=== PATIENT | male | born 1945 | race Caucasian/White ===

== ENCOUNTER → 2016-10-20 | Outpatient (CLI) | payer OTHER ==
[~2016-10-20] MED LIST: ASPI81TA28 PO; ATOR-54 PO; CEPH500C2 PO; HYDR-5688 PO; HYDR12.56 PO; MULT-506 PO; NTRGSL/4 UT; OMEP40CA41 PO; RAMI10CA PO; RAMI5CAP PO; WARF5TAB7 PO; WARF7.5T4 PO
[2016-10-20 10:25] LABS: CHOLESTEROL/HDL RATIO 3.3
== END | disposition home or self-care (01) ==
LOC: C.LAB1850 08:34
PROVIDERS: ATTEND Internal Medicine Cardiovascular Disease
DX: E78.5 Hyperlipidemia, unspecified (principal)

== ENCOUNTER → 2017-03-20 | Day surgery (SDC) | payer OTHER ==
[2017-03-17 09:39] LABS: BASO % 0.5 %; BASO ABS # 0.03 K/uL (0-0.2); COMPLETE YES; EOS % 2.8 %; HEMATOCRIT 41.3 % (42-52); IG% 0.2 %; LYMPH % 23.2 %; LYMPH ABS # 1.41 K/uL (1.2-3.4); MEAN CELL VOLUME 93.2 fL (80-100); MEAN CORPUSCULAR HGB CONC 35.4 g/dl (32-36); MEAN PLATELET VOLUME 9.8 fL (7.4-10.4); MONO % 6.4 %; NEUT % 66.9 %; PLATELET COUNT 211 K/uL (130-400); RED BLOOD COUNT 4.43 M/uL (4.7-6.1); WHITE BLOOD COUNT 6.08 K/uL (4.8-10.8)
[2017-03-17 10:02] LABS: BLOOD UREA NITROGEN 18 mg/dl (7-18); BUN/CREATININE RATIO 12.6 (10-20); CALCIUM 8.8 mg/dl (8.5-10.1); CARBON DIOXIDE 28 mmol/L (21-32); CHLORIDE 106 mmol/L (98-107); GLUCOSE 85 mg/dl (70-99); POTASSIUM 4.4 mmol/L (3.5-5.1); SODIUM 140 mmol/L (136-145)
[2017-03-18 08:43] VITALS: Ht 188 cm; Wt 77.3 kg
[~2017-03-20] VITALS: Ht 188 cm; Wt 77.3 kg
[~2017-03-20] MED LIST changes: +ATROPINE SULFATE 0.1 MG/ML 5ML SYR IV PRN; +BENZOIN SPRAY 118 ML BTL TOP ONE; +BUPIVACAINE 0.5 % 5 MG/1 ML PF 10ML VIAL ONE; +CEFOXITIN IV 2,000 MG in DEXTROSE 5% 50ML 50 ML IV SCH; +CEFOXITIN SOD 2000MG IV SCH; +DEXAMETHASONE SOD INJ 4 MG/ML VIAL ONE; +FENTANYL CITRATE INJ 50 MCG/1 ML 2 ML VIAL IV PRN; +FENTANYL CITRATE INJ 50 MCG/1 ML 2 ML VIAL ONE; +GLYCOPYRROLATE INJ 0.2 MG/ML VIAL ONE; +HYDROCODONE/ACETAMOPHEN 5/325MG TAB PO PRN; +LACTATED RINGER'S 1000ML 1,000 ML IV SCH; +LIDOCAINE HCL 2% 2 ML VIAL (20MG/ML) ONE; +METHYLENE BLUE 0.5% 10 ML VIAL ONE; +MIDAZOLAM HCL 1 MG/ML 2ML VIAL ONE; +NEOSTIGMINE METHYLSULFATE 5 MG/5 ML SYR ONE; +ONDANSETRON INJ 2 MG/ML 2 ML VIAL IV PRN; +ONDANSETRON INJ 2 MG/ML 2 ML VIAL ONE; +PROPOFOL IV EMULSION 10 MG/ML 20 ML VIAL IV ONE; +ROCURONIUM BROMIDE 10 MG/ML 5 ML VIAL IV ONE; +SODIUM CHLORIDE 0.9% 1000ML 1,000 ML IV SCH; +SUCCINYLCHOLINE CHLORIDE 20 MG/ML 10 ML VIAL IV ONE
--- NOTE | 2017-03-20 11:58 | History & Physical Bridge - [place] ---
H&P Re-Evaluation Bridge Note: I have examined the patient, reviewed the History & Physical and in the interval since the performance of the History & Physical I have noted the following changes of clinical significance: No changes noted
--- NOTE | 2017-03-20 12:36 | [facility] Operative Report ---
Operative Report Operative Date Mar 20, 2017. Pre-Operative Diagnosis [id number] Post-Operative Diagnosis same as preop Procedure(s) Performed Rectal Exam Under Anesthesia, Fistulotomy Surgeon Dr. 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 Any exceptions are noted below.
--- NOTE | 2017-03-20 12:43 | Discharge Instructions-SurgCtr ---
Discharge Instructions Date of Service Mar 20, 2017. 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 will need to use a pad for 1-2 weeks * * Avoid constipation- may use Senokot S and Milk of magnesia twice daily as directed on the package * May use ibuprofen for pain as tolerated. * Expect some swelling and bruising. Call your doctor if: * Temperature above 101 degrees * Pain not relieved by pain medicine ordered * There is increased drainage or redness from any incision * You have any unanswered questions or concerns [phone]. FOLLOW UP VISIT: If not already scheduled, please call the office for a follow-up visit. for next week- check up- no sutures to remove OFFICE PHONE NUMBER: Dr. Casanova Office Anesthesia . Post Anesthesia Instructions: If you have had General Anesthesia or IV Sedation: * Do not drive today. * Resume driving when surgeon permits. * Do not make important decisions or sign legal documents today. * Call surgeon for: 1. Temperature elevations greater than 101 degrees F. 2. Uncontrollable pain. 3. Excessive bleeding. 4. Persistent nausea and vomiting. 5. Medication intolerance (nausea, vomiting or rash). * For nausea and vomiting use only clear liquids such as: tea, soda, bouillon until nausea subsides, then gradually increase diet as tolerated. * If you have any concerns or questions, call your surgeon's office. If physician is unavailable and it is an emergency, call 911 or go to the nearest emergency room. . Diet Recommendations Home Diet: resume previous diet Procedures Procedures Performed: Rectal Exam Under Anesthesia, Fistulotomy Pending Studies Studies pending at discharge: no Medical Emergencies . Who to Call and When: Medical Emergencies: If at any time you feel your situation is an emergency, please call 911 immediately. . Non-Emergent Contact Non-Emergency issues call your: Primary Care Provider, Surgeon . . "Provider Documentation" section prepared by Max Casanova. .
--- NOTE | 2017-03-20 13:25 | OPERATIVE REPORT ---
DATE OF OPERATION: 03/20/2017 NAME OF OPERATION: Exam under anesthesia with fistulotomy. POSTOPERATIVE DIAGNOSIS: Fistula in ano. POSTOPERATIVE DIAGNOSIS: Same. STAFF SURGEON: Dr. Casanova. SUPERVISOR LEAD BURNING: Kailyn Arguello PA-C. ANESTHESIA: General. POSITION: Prone. PROCEDURE: The patient was brought in the operating room and placed on the operating table in the prone position after appropriate intubation. His buttocks were taped apart. The table was placed in a slight jackknife position. On inspection, the patient had what appeared to be small granulomas to the right of the anal area at approximately 4 o'clock. These were probed and found to communicate with a tunnel to the area just above the dentate line deep to the internal sphincter muscle. There was a cord-like palpable structure in the subcutaneous tissue which I suspected was the fistula. This area was opened. There was a large area of granuloma with the fistula tract as described just above the dentate line. It was not through the external sphincter muscles. This was opened and then cauterized and then a dressing applied. The area was anesthetized using 0.5% plain Marcaine and again the finding was a fistula in ano. I attest to the content of the Intraoperative Record and any orders documented therein. Any exception s are noted below.
[2017-03-20 13:39] VITALS: TEMP 36.4
[2017-03-20 13:52] VITALS: PULSE 76
[2017-03-20] MEDS: LABETALOL HCL IV 5 MG/ML 20ML IV PRN ×2 (14:06→14:21)
--- NOTE | 2017-03-20 14:29 | Anesthesia Progress Nt - [facility] ---
Anesthesia Post Op Note Date & Time Mar 20, 2017 at 14:29 Vital Signs Vital Signs Past 12 Hours Date Time Temp Pulse Resp B/P (MAP) Pulse Ox O2 Delivery O2 Flow Rate FiO2 03/20/17 13:52 76 16 171/105 (127) 97 Room Air 03/20/17 13:39 36.4 74 16 169/93 (118) 98 Room Air 03/20/17 13:22 36.6 164/98 (119) 03/20/17 13:20 173/107 (125) 03/20/17 13:19 68 14 96 03/20/17 13:19 68 14 03/20/17 13:15 150/98 (113) 03/20/17 13:14 80 19 03/20/17 13:14 81 19 96 03/20/17 13:10 156/95 (120) 03/20/17 13:09 74 23 03/20/17 13:09 74 23 98 03/20/17 13:06 Room Air 03/20/17 13:05 143/98 (110) 03/20/17 13:04 75 22 03/20/17 13:04 79 22 97 03/20/17 13:00 154/89 (112) 03/20/17 12:59 63 16 163/101 (120) 100 03/20/17 12:59 61 16 03/20/17 12:55 139/100 (114) 03/20/17 12:54 70 18 03/20/17 12:54 72 18 100 03/20/17 12:50 150/102 (124) 03/20/17 12:49 72 13 03/20/17 12:49 74 13 03/20/17 12:45 161/108 (121) 03/20/17 12:44 87 19 03/20/17 12:44 85 19 98 03/20/17 12:43 169/106 (137) 03/20/17 12:39 36.3 86 16 169/106 97 Diffusion Mask 5 03/20/17 10:39 37.2 89 22 166/115 (132) 97 Room Air 170/90 (116) Notes Mental Status: alert / awake / arousable, participated in evaluation Pt Amnestic to Procedure: Yes Nausea / Vomiting: adequately controlled Pain: adequately controlled Airway Patency, RR, SpO2: stable & adequate BP & HR: stable & adequate Hydration State: stable & adequate Anesthetic Complications: no major complications apparent
[2017-03-20 14:33] VITALS: BP 162/98; O2SAT 97
== END | disposition home or self-care (01) ==
LOC: X.SURG 10:20
PROVIDERS: ATTEND Surgery
DX: K60.3 Anal fistula (principal); Z79.01 Long term (current) use of anticoagulants; I48.91 Unspecified atrial fibrillation; I25.10 Atherosclerotic heart disease of native coronary artery without angina pectoris; K64.8 Other hemorrhoids; E78.5 Hyperlipidemia, unspecified; I10 Essential (primary) hypertension; R39.9 Unspecified symptoms and signs involving the genitourinary system; Z79.899 Other long term (current) drug therapy

== ENCOUNTER 2017-07-08 10:25 | Emergency (ER) | payer OTHER ==
[~2017-07-08] VITALS: Ht 188 cm; Wt 79.4 kg
[~2017-07-08 10:25] MED LIST changes: -ATROPINE SULFATE 0.1 MG/ML 5ML SYR IV PRN; -BENZOIN SPRAY 118 ML BTL TOP ONE; -BUPIVACAINE 0.5 % 5 MG/1 ML PF 10ML VIAL ONE; -CEFOXITIN IV 2,000 MG in DEXTROSE 5% 50ML 50 ML IV SCH; -CEFOXITIN SOD 2000MG IV SCH; -DEXAMETHASONE SOD INJ 4 MG/ML VIAL ONE; -FENTANYL CITRATE INJ 50 MCG/1 ML 2 ML VIAL IV PRN; -FENTANYL CITRATE INJ 50 MCG/1 ML 2 ML VIAL ONE; -GLYCOPYRROLATE INJ 0.2 MG/ML VIAL ONE; -HYDROCODONE/ACETAMOPHEN 5/325MG TAB PO PRN; -LACTATED RINGER'S 1000ML 1,000 ML IV SCH; -LIDOCAINE HCL 2% 2 ML VIAL (20MG/ML) ONE; -METHYLENE BLUE 0.5% 10 ML VIAL ONE; -MIDAZOLAM HCL 1 MG/ML 2ML VIAL ONE; -NEOSTIGMINE METHYLSULFATE 5 MG/5 ML SYR ONE; -ONDANSETRON INJ 2 MG/ML 2 ML VIAL IV PRN; -ONDANSETRON INJ 2 MG/ML 2 ML VIAL ONE; -PROPOFOL IV EMULSION 10 MG/ML 20 ML VIAL IV ONE; -ROCURONIUM BROMIDE 10 MG/ML 5 ML VIAL IV ONE; -SODIUM CHLORIDE 0.9% 1000ML 1,000 ML IV SCH; -SUCCINYLCHOLINE CHLORIDE 20 MG/ML 10 ML VIAL IV ONE
[2017-07-08 10:27] VITALS: TEMP 36.4; Ht 188 cm; Wt 79.4 kg
[2017-07-08] MEDS ORDERED: NAPR1TAB9 PO (11:13)
--- NOTE | 2017-07-08 11:19 | DIAGNOSTIC IMAGING REPORT ---
R ANKLE MIN 3 VIEWS ROUTINE CLINICAL HISTORY: swelling/pain pain. Edema. COMPARISON: None. DISCUSSION: The bones and joint spaces appear intact. There is no evidence of fracture, dislocation or bony disease. Mild generalized soft tissue edema. Small old avulsion tip medial malleolus. IMPRESSION: Soft tissue edema. No acute bony abnormality. The above report was generated using voice recognition software. It may contain grammatical, syntax or spelling errors. Electronically signed by: Lopez Villarreal M.D. 07/08/2017 11:17 AM Dictated Date/Time: 07/08/2017 11:12 AM
[2017-07-08 12:05] LABS: BASO % 0.4 %; BASO ABS # 0.03 K/uL (0-0.2); COMPLETE YES; EOS % 1.3 %; IG% 0.3 %; LYMPH % 18.4 %; LYMPH ABS # 1.47 K/uL (1.2-3.4); MEAN CELL VOLUME 94.6 fL (80-100); MEAN CORPUSCULAR HEMOGLOBIN 32.9 pg (25-34); MEAN CORPUSCULAR HGB CONC 34.8 g/dl (32-36); MEAN PLATELET VOLUME 9.4 fL (7.4-10.4); NEUT % 72.6 %; PLATELET COUNT 264 K/uL (130-400); RED BLOOD COUNT 4.44 M/uL (4.7-6.1); WHITE BLOOD COUNT 7.99 K/uL (4.8-10.8)
[2017-07-08 12:14] LABS: INR 1.8 (0.9-1.1); PARTIAL THROMBOPLASTIN RATIO 1.5; PROTHROMBIN TIME (PATIENT) 18.7 SECONDS (9.0-12.0)
[2017-07-08 12:26] LABS: BUN/CREATININE RATIO 19.2 (10-20); CREATININE 1.45 mg/dl (0.60-1.40); POTASSIUM 4.4 mmol/L (3.5-5.1)
--- NOTE | 2017-07-08 12:31 | DIAGNOSTIC IMAGING REPORT ---
RIGHT LOWER EXTREMITY VENOUS DOPPLER HISTORY: R foot/ankle/lower leg swelling COMPARISON STUDY: None. FINDINGS: There is normal compressibility, flow, and augmentation within the right lower extremity deep venous system. IMPRESSION: No DVT within the right lower extremity Electronically signed by: Rj Reed M.D. 07/08/2017 12:29 PM Dictated Date/Time: 07/08/2017 12:29 PM
[2017-07-08 13:03] VITALS: BP 118/80; PULSE 75; O2SAT 95
[2017-07-08] MEDS ORDERED: CEPH500C2 PO (13:05)
--- NOTE | 2017-07-08 13:29 | EMERGENCY ROOM VISIT NOTE ---
ED Visit Note First contact with patient: 11:16 Patient seen and examined at bedside. All results reviewed. Patient comfortable and agreeable with plan as outlined by the physician hearing aid assistant. Patient plans to call Coumadin clinic today to discuss INR adjustments made to his usual dosing. Discussed with patient symptoms to watch and return for, he verbalized understanding.
--- NOTE | 2017-07-08 21:34 | EMERGENCY ROOM VISIT NOTE ---
ED Visit Note First contact with patient: 11:16 Chief Complaint: Right foot pain and swelling. History of Present Illness: Mr. Payton is a 72-year-old white male who ambulates into the ED complaining of right foot pain and swelling. Historically patient reports she has a history of atrial fibrillation and has been on warfarin for the last 10 years. Patient noted that he started developing pain over the lateral aspect of the right foot approximately 2 weeks ago. Since that time he has noted mild swelling but over the last 24 hours after coming home from [place] the swelling has increased. This is been associated with some mild erythema over the foot and into the lower third of the anterior lower leg. He reports at rest he has just some mild pain that he cannot describe and rates this discomfort 1/10. When he ambulates the pain becomes more intense and he rates this discomfort 2/ 10. He describes the discomfort as a pressure sensation. He also notes that sprain increases with palpation of the foot. He reports he has been using Tylenol with minimal relief of discomfort. He denies any associated symptoms including knee pain, ankle pain, pre-existing injury, recent injury. 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 Patient denies fevers, chills, sweats, other skin eruptions, chest pain, shortness of breath, palpitations, decreased appetite, abdominal pain, nausea, vomiting, leg/foot weakness/numbness/tingling. Review of Systems: As noted above in history of present illness. At least body systems were reviewed and found to be negative as noted above. Past Medical History: As previously noted, hypertension and status post hernia repair, unspecified knee surgery and tonsillectomy. Current Medications: Medications Dose Route/Sig Max Daily Dose Days Date Category Dose Instructions Aleve (Naproxen) 220 Mg Tab 220 Mg PO 07/08/17 Reported [place] 5MG/325MG (Acetaminophen/Hydrocodone Bitart) Tab 1-2 Tablet PO Q 6 HRS PRN 03/20/17 Rx PRN PAIN Lipitor (Atorvastatin) 20 Mg Tab 20 Mg PO QPM 03/18/17 Reported Hctz (Hydrochlorothiazide) 12.5 Mg Cap 12.5 Mg PO QAM 03/18/17 Reported Multivitamin (Multivitamins) Tab 1 Tab PO QAM 03/18/17 Reported Nitrostat (Nitroglycerin) 0.4 Mg Tab 0.4 Mg UT PRN 03/18/17 Reported Prilosec (Omeprazole) 40 Mg Cap 40 Mg PO QAM 03/18/17 Reported Ramipril 10 Mg Cap 10 Mg PO QAM 03/18/17 Reported Ramipril 5 Mg Cap 5 Mg PO QPM 03/18/17 Reported Jantoven (Warfarin Sodium) 7.5 Mg Tab 7.5 Mg PO MWF 03/18/17 Reported Jantoven (Warfarin Sodium) 5 Mg Tab 5 Mg PO [place] 03/18/17 Reported Aspirin Ec (Aspirin) 81 Mg Tab 81 Mg PO QAM 03/18/17 Reported Allergies to Medications: Patient denies. Social History: Patient is not employed; he feels safe in his home environment; he denies tobacco use and admits to alcohol use. Physical Examination: Vital Signs: Date Time Temp Pulse Resp B/P (MAP) Pulse Ox O2 Delivery O2 Flow Rate FiO2 07/08/17 13:03 75 17 118/80 95 07/08/17 11:52 90 17 120/80 97 Room Air 07/08/17 10:27 36.4 79 18 115/77 95 Room Air GENERAL: 72-year-old male in no acute distress, nontoxic-appearing, afebrile and hemodynamically stable. NEUROLOGICAL: Awake, alert and oriented to person, place and time. Answering questions appropriately and following commands. SKIN: Warm, dry and pink. No soft tissue trauma noted. HEENT: Atraumatic and normocephalic. THORAX: Lungs sounds are clear to auscultation and equal bilaterally with symmetrical chest wall. No wheezing, rales or rhonchi. No crepitus, tenderness , subcutaneous air or deformities noted. HEART: Regular rate and rhythm. No gallops, rubs or murmurs are appreciated. ABDOMEN: Flat, soft and nontender. Positive bowel sounds in all quadrants. No guarding, rigidity or organomegaly. LOWER EXTREMITIES: Moves all extremities well on command and with purpose. All distal neurovascular statuses are intact and equal bilaterally. No calf tenderness or cords. Right Lower Leg: Shows no gross bony deformities. There is mild erythema over the distal third of the tibia/fibula anteriorly and extending laterally over the lateral ankle and lateral foot. This area is warm to the touch when compared to the left. The area does not appear grossly cellulitis. There is no lymphangitis. He does have mild tenderness over the lateral inferior malleolus area of the foot. I do not see any wounds in this area. Distal pulses, sensations and full range of motion are noted. ED Course: Patient is assessed as noted above. Patient's medication list was reviewed. Laboratory Testing: Test 07/08/17 11:50 Range/Units White Blood Count 7.99 4.8-10.8 K/uL Red Blood Count 4.44 4.7-6.1 M/uL Hemoglobin 14.6 14.0-18.0 g/dL Hematocrit 42.0 42-52 % Mean Corpuscular Volume 94.6 80-100 fL Mean Corpuscular Hemoglobin 32.9 25-34 pg Mean Corpuscular Hemoglobin Concent 34.8 32-36 g/dl Platelet Count 264 130-400 K/uL Mean Platelet Volume 9.4 7.4-10.4 fL Neutrophils (%) (Auto) 72.6 % Lymphocytes (%) (Auto) 18.4 % Monocytes (%) (Auto) 7.0 % Eosinophils (%) (Auto) 1.3 % Basophils (%) (Auto) 0.4 % Neutrophils # (Auto) 5.81 1.4-6.5 K/uL Lymphocytes # (Auto) 1.47 1.2-3.4 K/uL Monocytes # (Auto) 0.56 0.11-0.59 K/uL Eosinophils # (Auto) 0.10 0-0.5 K/uL Basophils # (Auto) 0.03 0-0.2 K/uL RDW Standard Deviation 42.9 36.4-46.3 fL RDW Coefficient of Variation 12.4 11.5-14.5 % Immature Granulocyte % (Auto) 0.3 % Immature Granulocyte # (Auto) 0.02 0.00-0.02 K/uL Prothrombin Time 18.7 9.0-12.0 SECONDS Prothromb Time International Ratio 1.8 0.9-1.1 Activated Partial Thromboplast Time 39.2 21.0-31.0 SECONDS Partial Thromboplastin Ratio 1.5 Sodium Level 135 136-145 mmol/L Potassium Level 4.4 3.5-5.1 mmol/L Chloride Level 103 98-107 mmol/L Carbon Dioxide Level 26 21-32 mmol/L Anion Gap 6.0 3-11 mmol/L Blood Urea Nitrogen 28 7-18 mg/dl Creatinine 1.45 0.60-1.40 mg/dl Est Creatinine Clear Calc Drug Dose 52.5 ml/min Estimated GFR () 55.8 Estimated GFR (Non- 48.1 BUN/Creatinine Ratio 19.2 10-20 Random Glucose 92 70-99 mg/dl Calcium Level 9.0 8.5-10.1 mg/dl Total Bilirubin 0.9 0.2-1 mg/dl Direct Bilirubin 0.2 0-0.2 mg/dl Aspartate Amino Transf (AST/SGOT) 17 15-37 U/L Alanine Aminotransferase (ALT/SGPT) 19 12-78 U/L Alkaline Phosphatase 73 45-117 U/L Total Protein 7.1 6.4-8.2 gm/dl Albumin 3.1 3.4-5.0 gm/dl Left Ankle X-Rays: Were read by myself and the radiologist showing no acute fractures or dislocations. Mild generalized soft tissue edema was noted. Radiologist did note a small old avulsion chip fracture the medial malleolus. Right Lower Extremity Venous Doppler Ultrasound: Was reviewed by myself and read by the radiologist showing no deep vein thrombus. Patient was offered pain medication and refused multiple times. Patient's case was reviewed with Dr. Sanchez; she in apparently assessed the patient we agreed on diagnostic approach, treatment, disposition and plan. Patient and his were educated about today's findings and instructed on his treatment plan; he verbalized understanding and agreement with this plan. Clinical Impression: Right lower leg/foot cellulitis. Decision-Making: Initially my differential diagnosis I considered fracture, DVT , superficial thrombosis, cellulitis, and other causes. Disposition: Patient discharged home in stable condition accompanied by his ; prior to departure he was reassessed and subjectively reported that he was pain and symptom-free. Plan: Patient was encouraged use 650 mg of acetaminophen every 6 hours as needed for pain. Patient was prescribed Keflex 500 mg 4 times a day for 10 days per Patient was encouraged to keep his foot elevated while at rest. Patient was encouraged to contact the Coumadin clinic when he gets home today and request information/corrective maneuvers for his INR of 1.8. Patient was encouraged to follow-up with his family physician on Thursday for recheck before he goes on vacation. Patient was encouraged to watch the area for worsening signs of infection. Patient was encouraged to return to the ED or go to the closest hospital while on vacation for increasing signs of infection or any new/concerning symptoms.
== END 2017-07-08 13:31 | disposition home or self-care (01) ==
LOC: C.EDB 10:27
DX: L03.115 Cellulitis of right lower limb (principal); I48.91 Unspecified atrial fibrillation; I10 Essential (primary) hypertension; Z79.01 Long term (current) use of anticoagulants; Z79.82 Long term (current) use of aspirin

== ENCOUNTER → 2017-10-29 | Outpatient (CLI) | payer OTHER ==
[~2017-10-29] MED LIST changes: -CEPH500C2 PO; -HYDR-5688 PO; +NAPR1TAB9 PO
[2017-10-29 10:27] LABS: ALT/SGPT 26 U/L (12-78); AST/SGOT 30 U/L (15-37); BLOOD UREA NITROGEN 22 mg/dl (7-18); CALCIUM 8.7 mg/dl (8.5-10.1); CARBON DIOXIDE 25 mmol/L (21-32); CREATININE 1.49 mg/dl (0.60-1.40); GLUCOSE 90 mg/dl (70-99); POTASSIUM 4.1 mmol/L (3.5-5.1); SODIUM 137 mmol/L (136-145)
[2017-10-29 10:39] LABS: CHOLESTEROL 193 mg/dl (0-200)
== END | disposition home or self-care (01) ==
LOC: C.LAB1850 09:14
PROVIDERS: ATTEND Internal Medicine Cardiovascular Disease
DX: I25.10 Atherosclerotic heart disease of native coronary artery without angina pectoris (principal); I10 Essential (primary) hypertension; R97.20 Elevated prostate specific antigen [PSA]